=== PATIENT | male | born 1980 | race Caucasian/White ===

== ENCOUNTER 2020-09-22 17:04 | Outpatient (CLI) | payer OTHER, SELFPAY ==
--- NOTE | ~2020-09-22 | XR_ITS ---
EXAMINATION: HAND-HI ARTHRITIS 3+VIEWS DATE: 09/22/2020 17:21 INDICATION: Unspecified osteoarthritis with painful joints bilateral hands. TECHNIQUE: Posteroanterior, lateral, and oblique views of the left and of the right hands as well as a ballcatchers view of both hands were obtained. COMPARISON: None. FINDINGS: There is chronic-appearing osseous defect at the tuft of the right third distal phalanx with deformit y of the overlying nail and soft tissues suggesting sequela of old trauma. Bone alignment is normal. No acute fracture. Joint spaces are normal. No cortical erosions or osteophytosis. Soft tissues are u nremarkable. IMPRESSION: 1. No evident arthritis or acute osseous abnormality at the bilateral hands and wrists. Reviewed, dictated and finalized at location B. ER MINER BLASTING
== END 2020-09-22 17:05 | disposition home or self-care (01) ==
LOC: ANHIMG 17:06
PROVIDERS: PCP Family Medicine; Visit Provider Family Medicine
DX: M19.90 Unspecified osteoarthritis, unspecified site (principal); M79.89 Other specified soft tissue disorders
CPT/HCPCS: 73130

== ENCOUNTER 2021-04-12 15:57 | Outpatient (CLI) | payer OTHER, SELFPAY ==
--- NOTE | ~2021-04-12 | XR_ITS ---
EXAMINATION: XR chest 2V 04/12/2021 16:29 INDICATION: Chronic shortness of breath PROCEDURE: 2 view chest COMPARISON: No prior studies for comparison. FINDINGS: The lungs are clear. The cardiomediastinal silhouette is within normal limits. There are no pleural effusions. There is no pneumothorax suspected. IMPRESSION: 1: NO ACUTE CARDIOPULMONARY DISEASE. Reviewed, dictated and finalized at location A.
== END 2021-04-12 15:58 | disposition home or self-care (01) ==
LOC: ANHIMG 16:01
PROVIDERS: PCP Family Medicine; Visit Provider Physician Assistant
DX: R06.02 Shortness of breath (principal); R60.0 Localized edema
CPT/HCPCS: 71046

== ENCOUNTER 2023-09-24 13:07 | Emergency (ER) | payer OTHER, SELFPAY ==
--- NOTE | ~2023-09-24 | XR_ITS ---
EXAMINATION: XR chest 2V Exam Date/Time: 09/24/2023 13:55 PHOTOGRAPHER HISTORY: cough for 4 or 5 days Comparison: 04/12/2021. RESULT: Lines, tubes, and devices: None. Lungs and pleura: Subsegmental patchy left basilar opacities. Slightly low volumes with crowding. Cardiomediastinal silhouette: Stable. Other: No acute osseous or upper abdominal finding. IMPRESSION: Subsegmental left basilar atelectasis/consolidation. Reviewed, dictated and finalized at location K. OGRAPHER
--- NOTE | 2023-09-24 13:11 | ED.GENADULT ---
HPI - General Adult General Chief complaint: Upper Respiratory Infection Stated complaint: Cough,Runny Nose,Diarrhea Time Seen by Provider: 09/24/23 13:11 Source: patient Mode of arrival: ambulatory Limitations: no limitations History of Present Illness HPI narrative: 42-year-old male patient presents to [facility] with complaints of cold symptoms past 4-5 days. Patient does have a history of autoimmune disorder. Patient's states he has had runny nose, congestion a fever for about 2 days that has since resolved. Body aches, chills just overall not feeling would good and fatigue. Patient denies getting the flu shot this year. Patient states his most bothersome symptom is that a cough that started a couple of days ago and episodes of diarrhea. Related Data Allergies Allergy/AdvReac Type Severity Reaction Status Date / Time No Known Allergies Allergy Verified 09/24/23 13:17 Review of Systems Review of Systems: CONSTITUTIONAL: Positive fever, body aches and chills, denies sweats. EYES: Denies visual changes, redness, or discharge. ENT: Denies rhinorrhea, positive congestion, denies sore throat, or otalgia. CARDIOVASCULAR: Denies chest pain, palpitations, or edema. RESPIRATORY: positive cough with intermittent dyspnea. GASTROINTESTINAL: Denies abdominal pain, nausea, vomiting, positive diarrhea. GENITOURINARY: Denies dysuria or hematuria. SKIN: Denies rash or itching. MUSCULOSKELETAL: Denies back pain, joint pain, or myalgia. NEUROLOGIC: Denies headache, numbness, or weakness. PSYCHIATRIC: Denies anxiety or depression. [facility] Past Medical History Medical History ANCA-positive vasculitis Anxiety Chronic fatigue Diffuse pulmonary alveolar hemorrhage Diverticulitis of large intestine without perforation or abscess SIRI (generalized anxiety disorder) Hypersomnia Lipid screening PRIMO (obstructive sleep apnea) Rheumatoid arthritis Steroid long-term use Family History Family History Grandparent Family history of type 2 diabetes mellitus Social History Social History Social History: Smoking status: Never smoker (chewing tobacco) Tobacco type: smokeless tobacco Smokeless tobacco user: chewing tobacco Second hand tobacco smoke exposure: No Alcohol intake: current Alcohol use details: Rarely Substance use: never Substance use type: does not use Do You Feel Safe in your Home?: Yes Lack of Transportation: No Lack of Food: Never True Current Housing: I Have Housing Concerned About Future Housing: No Difficulty Paying Gas/Electric Bills: No Difficulty Paying for Meds: No Currently Unemployed: No Education: Trade/Vocational Certificate Difficulty w/ Childcare or Family Care: No Living arrangements: with family Occupation/Education: occupation 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 There is no relevant family history pertinent to the presenting complaint. Exam Narrative: GENERAL: Well-appearing, well-nourished, and in no acute distress. HEAD: Normocephalic, atraumatic. EYES: PERRLA and EOMI. ENT: Nares clear, no rhinorrhea or epistaxis. Mucous membranes moist. posterior pharynx no erythema, tonsillar enlargement, exudates or lesions present. Bilateral TMs are clear no erythema foreign bodies canal. NECK: Supple. No lymphadenopathy CHEST: Clear to auscultation. No respiratory distress. HEART: Regular rate and rhythm. No murmur heard. Normal peripheral pulses. ABDOMEN: Soft, nontender, nondistended, Hyperactive active bowel sound
[2023-09-24 13:15] VITALS: BP 141/84; PULSE 100; RESP 18; TEMP 37; O2SAT 97
== END 2023-09-24 14:25 | disposition home or self-care (01) ==
PROVIDERS: Emergency Provider Nurse Practitioner Family; PCP Family Medicine
DX: J10.1 Influenza due to other identified influenza virus with other respiratory manifestations (principal); J10.00 Influenza due to other identified influenza virus with unspecified type of pneumonia; M06.9 Rheumatoid arthritis, unspecified; F17.290 Nicotine dependence, other tobacco product, uncomplicated; Z20.822 Contact with and (suspected) exposure to COVID-19
CPT/HCPCS: 71046; 87081; 87426; 87804; 87880; 99213; G0463

== ENCOUNTER 2025-07-15 16:38 | Emergency (ER) | payer OTHER, SELFPAY ==
--- OUTSIDE RECORDS SUMMARY | 2025-07-15 16:41 | XMS_ITS | Encounter Summary ---
Author Organization [facility] Address [address] [facility] [place] [address] Care Team Providers Care Logging Assistant Name Role Phone Lenore Wolfe MD Primary Care Provider + Encounter Details Date Type Department Care Team (Late st Contact Info) Description 10/08/2020 Lab Requisition [facility] Care Pathology Lab [address] [place] [address] [place] [id number] [facility] [address] [place] [address] Acute kidney failure, unspecified Social History Tobacco Use Types Packs/Day Years Used Date Smoking Tobacco: Never Smokeless Tobacco: Never Alcohol Use Standard Drinks/Week Comments Yes 0 (1 standard drink = 0.6 oz pur e alcohol) AUDIT-C Answer Date Recorded Q1: How often do you have a drink containing alc ohol? Monthly or less 10/06/2020 Q2: How many drinks containi ng alcohol do you have on a typical day when you are drinking? 1 or 2 10/06/2020 Q3: How often do you have si x or more drinks on one occasion? Never 10/06/2020 Sex and Gender Information Value Date Recorded Sex Assigned at Not on file Legal Sex Male 12:57 AM CDT Gender Identity Male 11/28/2024 8:12 AM CDT Sexual Orientation Straight 11/28/2024 8: 12 AM CDT documented as of this encounter Functional Status * Is person deaf or have serious hearing difficulty? Answer Date of Assessment Author No 10/06/2020 3:45 AM CDT Polina Zuluaga i, RN * Is person blind or have serious difficulty seeing? Answer Date of Assessment Author No 10/06/2020 3:45 AM CDT Polina Zuluaga i, RN * Does person have serious difficulty walking/climbing stairs? Answer Date of Assessment Author No 10/06/2020 3:45 AM CDT Polina Zuluaga i, RN * Does person have difficulty dressing/bathing? Answer Date of Assessment Author No 10/06/2020 3:45 AM CDT Polina Zuluaga i, RN * Does person have difficulty doing errands alone? Answer Date of Assessment Author No 10/06/2020 3:45 AM CDT Polina Zuluaga i, RN documented as of this encounter Mental Status * Does person have difficulty concentrating/remembering/making decisions? Answer Entry Date Author No 10/06/2020 3:45 AM ROMEOT Polina Zuluaga i, RN documented in this encounter Plan of Treatment Upcoming Encounters Date Type Department Care Team (Late st Contact Info) Description 08/20/2025 10:40 AM CAMPAIGN CONSULTANT Office Visit [facility] [address] [address] Conchita Viveros, DENYS-MANAGER DISH [address] [address] 09/19/2025 8:30 AM CAMPAIGN CONSULTANT Office Visit [facility] - Nephrology [address] [place] [address], [place] [id number] Sam Carmona MD [address] [place] [address] [place] [address] 10/31/2025 9:00 AM CDT Appointment [facility] [address] [place] [address] documented as of this encounter Procedures Procedure Name Priority Date/Time Associated Diagnosis Comments ELECTRON MICROSCOPY (SLU) Routine 10/07/2020 1:00 PM CDT Acute kidney failure, unspecified documented in this encounter Results * ELECTRON MICROSCOPY (SLU) (10/07/2020 1:00 PM CDT) Case Report Gynecologic Cytology Report Case: [id number] Authorizing Provider: Jere Cooley MD Collected: 10/07/2020 01:00 PM Ordering Location: [facility] Care Pathology Lab Received: 10/08/2020 09:55 AM First Screen: Edward Liu Specimen: EM RENAL - U, Kidney, Left, There are five pieces, each approx. 5 mm long. 10/15/2020 3:23 PM CDT [facility] PATHOLOGY LAB Electron Microscopy Technical Summary # of Block(s) cut: 4 # of Glomeruli found: 3 # of Glomeruli photographed: 1 10/15/2020 3:23 PM CDT U PATHOLOGY LAB Embedded Images - EM 10/15/2020 3:23 PM CDT U PATHOLOGY LAB Pathology/Cytolo gy (Kidney, Left) 10/07/2020 1:00 PM CDT 10/08/2020 9:55 AM CDT us Jere Cooley MD LAB - PATHOLOGY/CYTOLOGY ORDERAB LES Final Result Performing Organization Address City/State/[facility] Co de Phone Number [facility] PATHOLOGY LAB [address] [phone] documented in this encounter Visit Diagnoses Diagnosis Acute kidney failure, unspecified documented in this encounter Care Teams Logging Assistant Relationship Specialty Start Date End Date Lenore Wolfe MD [address] [place] [address] PCP - General Family Medicine 02/14/22 documented as of this encounter
--- OUTSIDE RECORDS SUMMARY | 2025-07-15 16:41 | XMS_ITS | Encounter Summary ---
Author Organization [facility] Address [address] [facility] [place] [address] Care Team Providers Care Foil Wrapper Name Role Phone Lenore Wolfe MD Primary Care Provider + Encounter Details Date Type Department Care Team (Late st Contact Info) Description 05/26/2025 Results Follow-Up [facility] - Nephrology [address] [place] [address], [place] [phone] Sam Carmona MD [address] [place] [address] [place] [address] Social History Tobacco Use Types Packs/Day Years Used Date Smoking Tobacco: Never Smokeless Tobacco: Current Chew Comments:chew tobacco daily Alcohol Use Standard Drinks/Week Comments Yes 0 (1 standard drink = 0.6 oz pur e alcohol) occasionally AUDIT-C Answer Date Recorded Q1: How often [...] difficulty? Answer Date of Assessment Author No 10/12/2020 10:24 AM Yoli Fournier RN * Is person blind or have serious difficulty seeing? Answer Date of Assessment Author No 10/12/2020 10:24 AM Yoli Fournier RN * Does person have serious difficulty walking/climbing stairs? Answer Date of Assessment Author No 10/12/2020 10:24 AM Yoli Fournier RN * Does person have difficulty dressing/bathing? Answer Date of Assessment Author No 10/12/2020 10:24 AM Yoli Fournier RN * Does person have difficulty doing errands alone? Answer Date of Assessment Author No 10/12/2020 10:24 AM Yoli Fournier RN documented as of this encounter Mental Status * Does person have difficulty concentrating/remembering/making decisions? Answer Entry Date Author No 10/12/2020 10:24 AM Yoli Fournier RN documented in this encounter Plan of Treatment Upcoming Encounters Date Type Department Care Team (Late st Contact Info) Description 08/20/2025 10:40 AM CODER OPERATOR Office Visit [facility] Weight Management Services [address] [facility] [address] [place] [address] Conchita Viveros APRN-ELECTROMECHANICAL TECHNICIAN [address] [address] 09/19/2025 8:30 AM CODER OPERATOR Office Visit [facility] - Nephrology [address] [facility], [place] [phone] Sam Carmona MD [address] [place] [address] [place] [address] 10/31/2025 9:00 AM CDT Appointment [facility] [address] [place] [address] documented as of this encounter Goals Goal Patient Goal Type Associated Problems Recent Progress Patient-Stated? Author Medication Management General On track( 025 8:28 AM CDT) No Sera Aguilar RN Note: Expected end date: ongoing Interventions: Take all medications as prescribed Let your doctor know right away about any changes in your medications Safety General On track( 022 8:53 AM CODER OPERATOR) Sera Clarke, RN Note: Expected end date: ongoing Interventions: Your nurse will assess your risk for falls/injury each visit Be aware of medications that could predispose you to falling documented as of this encounter Visit Diagnoses Not on filedocumented in this encounter Care Teams Foil Wrapper Relationship Specialty Start Date End Date Lenore Wolfe MD [address] [place] [address] PCP - General Family Medicine 02/14/22 documented as of this encounter
--- OUTSIDE RECORDS SUMMARY | 2025-07-15 16:42 | XMS_ITS | Encounter Summary ---
Author Organization [facility] Address [address] [facility] [place] [address] Care Team Providers Care Sales Representative Graphic Art Name Role Phone Lenore Wolfe MD Primary Care Provider + Encounter Details Date Type Department Care Team (Late st Contact Info) Description 10/07/2020 Lab Requisition [facility] Care Pathology Lab [address] [place] [address] Gianni Reynolds MD [address] [facility] [address] [place] [address] Illness, unspecified Social History Tobacco Use Types Packs/Day [...] Assessment Author No 10/06/2020 3:45 AM CDT Polnia Zuluaga i, RN * Does person have [...] st Contact Info) Description 08/20/2025 10:40 AM AERIAL GUNNER Office Visit [facility] [address] [address] Conchita Viveros, [facility] [address] [address] 09/19/2025 8:30 AM AERIAL GUNNER Office Visit [facility] - Nephrology [address] [place] [address], [place] [phone] Sam Carmona MD [address] [place] [address] [place] [address] 10/31/2025 9:00 AM CDT Appointment [facility] [address] [place] [address] documented as of this encounter Procedures Procedure Name Priority Date/Time Associated Diagnosis Comments PATHOLOGY TISSUE Routine 10/07/2020 12:1 5 PM CDT Illness, unspecified documented in this encounter Results * PATHOLOGY TISSUE (10/07/2020 12:15 PM CDT) Case Report Surgical Pathology Report Case: [id number] Authorizing Provider: Collected: 10/07/2020 12:15 PM Ordering Location: [facility] Pathology Lab Received: 10/07/2020 02:57 PM Pathologist: Norberto Velazquez MD Specimen: Kidney Biopsy, left 11:41 AM CDT [facility] PATHOLOGY LAB Final Diagnosis Kidney, Left, Percutaneous Needle Biopsy: - 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 - Acute tubular injury. - Focal global and focal segmental glomerulosclerosis. - See note. Note: Of 50 glomeruli, 34 show extracapillary proliferation in the form of cellular crescents (19 glomeruli), fibrocellular crescents (12 glomeruli), and fibrous crescents (3 glomeruli). With regard to chronic changes, 5 of 50 glomeruli are globally sclerotic, there is approximately 10% tubule atrophy, and there is approximately 20% interstitial fibrosis. Light microscopy and immunofluorescence results were reported to Dr. Cooley on 10/08/20 at 3:45 p.m. Ultrastructural analysis is pending and will be reported in an addendum. 11:41 AM CDT [facility] PATHOLOGY LAB at 1558 CDT Microscopic Description and Comment 1 H&E, 1 Gaston silver, 1 PAS, 1 trichrome. Sections show needle cores of renal parenchyma with up to 50 glomeruli, 5 of which are globally sclerotic and 3 of which show segmental sclerosis. Of 50 glomeruli, 34 show extracapillary proliferation in the form of cellular crescents (19 glomeruli), fibrocellular crescents (12 glomeruli), and fibrous crescents (3 glomeruli); up to 9 glomeruli show segmental fibrinoid necrosis. The interstitium is expanded by fibrosis occupying approximately 20% of the cortex sampled. Within the interstitium is a mild mononuclear inflammatory infiltrate. Approximately 10% of tubules are atrophic. Nonatrophic tubules show focal cytoplasmic vacuolization, focal attenuation of the brush border, and an occasional epithelial mitotic figure. Arteries are unremarkable. (DSB) 11:41 AM CDT [facility] PATHOLOGY LAB Clinical History The patient is a 39-year-old man with hemoptysis, renal insufficiency (creatinine of 2.24), 3+ hematuria, and 1+ proteinuria. He underwent percutaneous needle biopsy of the left kidney. 11:41 AM [facility] PATHOLOGY LAB Gross Description Received in saline on an ice pack are four needle cores of padilla-pink tissue with diameters of 0.1 cm and lengths ranging from 1.2 cm to 1.5 cm. Glomeruli are identified with the dissecting scope. The specimen is submitted in its entirety for light microscopic, immunofluorescence, and electron microscopic analyses. 11:41 AM [facility] PATHOLOGY LAB Immunofluorescence 2 FS H&E, 1 IgG, 1 IgA, 1 IgM, 1 C1q, 1 C3, 1 albumin, 1 fibrinogen, 1 kappa, 1 lambda. H&E: Shows renal parenchyma with more than 10 glomeruli. IgG:Trace diffuse global linear glomerular basement membrane label. IgA: Trace focal segmental granular mesangial label. IgM: Trace diffuse segmental smudgy mesangial label. C1q: Trace diffuse segmental granular mesangial label. C3: 1+ diffuse segmental smudgy mesangial label. Albumin: 1+ diffuse global linear glomerular basement membrane label. Fibrinogen: 4+ diffuse segmental smudgy glomerular label. [place]: 3+ cast label. Lambda: 3+ cast label. 11:41 AM [facility] PATHOLOGY LAB Addendum 1 Electron Microscopy: [id number]. Wji-uniodgqzqi-tagi k, nikvtadmz-fydf-badw berkley sections of four blocks are reviewed; one is selected for ultrastructural analysis. Transmission electron microscopic analysis of a single glomerulus shows widespread effacement of visceral epithelial foot processes, segmental wrinkling of the basement membrane, swollen endothelial cells, and a moderate increase in mesangial matrix. EM Interpretation: - Nonspecific ultrastructural alterations. 11:41 AM [facility] PATHOLOGY LAB Addendum electronically signed by Norberto Velazquez MD on 10/16/2020 at 1141 CDT Disclaimer The performance characteristics of all immunohistochemical and indirect immunofluorescence stains (if any) cited in this report were determined by the Histopathology Laboratory of [facility]. Some of these tests were developed by our own laboratory and have not been cleared or approved by the US Food and Drug Administration. The FDA does not require this test to go through premarket FDA review. These tests are used for clinical purposes. They should not be regarded as investigational or for research. This laboratory is certified under the Clinical Laboratory Improvement Amendments (CLIA) as qualified to perform high complexity clinical laboratory testing. This case has been personally reviewed and interpreted by the attending (teaching) pathologist. The interpretation of this case is performed by [facility], [address] [place] [address]. 1 11:41 AM CDT [facility] PATHOLOGY LAB Embedded Images 11:41 AM CDT [facility] PATHOLOGY LAB Pathology/Cytolo gy KIDNEY BIOPSY SPECIMEN / Unknown 10/07/2020 12:15 PM CDT 10/07/2020 2:57 PM CDT us Gianni Reynolds MD LAB - PATHOLOGY/CYTOLOGY ORDERAB LES Edited Result - Final [facility] PATHOLOGY LAB [address] [place] [address], [facility] [phone] documented in this encounter Visit Diagnoses Diagnosis Illness, unspecified documented in this encounter Care Teams Sales Representative Graphic Art Relationship Specialty Start Date End Date Lenore Wolfe MD [address] [place] [address] PCP - General Family Medicine 02/14/22 documented as of this encounter
--- OUTSIDE RECORDS SUMMARY | 2025-07-15 16:42 | XMS_ITS | Clinical Summary ---
Author Organization [facility] Address [address] [place] [address] Phone Care Team Providers Care Hvac Service Technician Name Role Phone Unavailable Primary Care Provider Unavailabl e Allergies Active Allergy Reactions Criticality Noted Date Comments Amlodipine Swelling Medium 05/10/2021 Medications allopurinoL (ZYLOPRIM) 100 mg tablet Take 100 mg by mouth daily. Active Tavneos 10 mg Capsule Take 10 mg by mouth. Active chlorthalidone (HYGROTON) 25 mg tablet Take 25 mg by mouth daily. 5 Active losartan (COZAAR) 100 mg tablet Take 100 mg by mouth daily. 5 Active predniSONE (DELTASONE) 10 mg tablet TAKE 6 TABLETS BY MOUTH DAILY FOR 7 DAYS PLEASE TAKE AFTER FOOD 5 Active tirzepatide, weight loss, (Zepbound) 5 mg/0.5 mL Pen Injector Inject 5 mg by subcutaneous injection every 7 days. 5 Active erythromycin (ILOTYCIN) 5 mg/gram (0.5 %) ointmentIndicat ions:Chalazion of right lower eyelid Administer 0.25 Inches in right eye every 6 hours. 7 Gram 5 Active Active Problems No known active problems Encounters Date Type Department Care Team Description 06/24/2025 External Device Data ST[facility] ABSTRACTION Provider, Abstract 05/27/2025 External Device Data ST[facility] ABSTRACTION Provider, Abstract 05/21/2025 External Device Data ST[facility] ABSTRACTION Provider, Abstract 05/21/2025 External Device Data ST[facility] ABSTRACTION Provider, Abstract from Last 3 Months Social History Tobacco Use Types Packs/Day Years Used Date Smoking Tobacco: Never Assessed Sex and Gender Information Value Date Recorded Sex Assigned at Not on file Legal Sex Male 9:19 AM CDT Gender Identity Not on file Sexual Orientation Not on file Last Filed Vital Signs Vital Sign Reading Time Taken Comments Blood Pressure 132/80 01/19/2025 9:41 AM CDT Pulse 84 01/19/2025 9:41 AM CDT Temperature 37.2 C (98.9 F) 01/19/2025 9:41 AM CDT Respiratory Rate 16 01/19/2025 9:41 AM CDT Oxygen Saturation 99% 01/19/2025 9:41 AM CDT Inhaled Oxygen Concentration - - Weight 148.1 kg (326 lb 9.6 oz) 01/19/2025 9:41 AM CDT Height 185.4 cm (6' 1) 01/19/2025 9:41 AM CDT Body Mass Index 43.09 01/19/2025 9:41 AM CDT Plan of Treatment Health Maintenance Due Date Last Done Comments Pre-Diabetes and Diabetes Screening 1980 DTAP/TDAP/TD VACCINES (1 - Tdap) 12/06/1999 HEPATITIS B VACCINES (1 of 3 - 19+ 3-dose series) 12/06/1999 INFLUENZA VACCINE (#1) 2025 COVID-19 Vaccine (3 - 2024- season) 2025, 08/14/2020 HPV VACCINES (No Doses Required) Completed Insurance [employer] O OPEN ACCESS
--- OUTSIDE RECORDS SUMMARY | 2025-07-15 16:42 | XMS_ITS | Data Portability ---
Author Organization [facility] [place] (57) Address [address] [facility] [address] [place] [address] Care Team Providers Care Credit Assessment Analyst Name Role Phone LENNY HWANG Referring Provider [phone] Assessment No assessment recorded. Plan of Treatment Reminders Order Date Submit Date Provider Last Modified By Organization Details Last Modified Time Details Appointments None record ed. Lab None record ed. Referral None record ed. Procedures None record ed. Surgeries None record ed. Imaging None record ed. Medication Orders None record ed. Patient TargetsNo targets recorded. Patient InstructionsNo instructions recorded. Reason for Referral None Reported. Procedures Surgical History Date Name Laterality Status Provider Name and Address Organization Details Recorded Time 12/28/2020 Sleep Study completed Mehdi Vinson [facility] [place] 12/29/2020 15:42:16 Imaging Results None recorded. Procedure Notes None recorded. Medical Equipment None Reported. Medications Name Sig Start Date Stop Date Status Note LastModified by Organization Details LastModified Time cyclobenzapri ne 10 mg tablet active Not Available Not Available Not Available prednisone 10 mg tablet active Not Available Not Available No t Available prednisone 20 mg tablet TAKE 3 TABLETS BY MOUTH DAILY WITH BREAKFAST active Not Available Not Available No t Available prednisone 5 mg tablet active Not Available Not Available No t Available amlodipine 5 mg tablet TAKE 1 TABLET BY MOUTH EVERY DAY active Not Available Not Available No t Available ciprofloxacin 500 mg tablet TK 1 T PO Q 12 H FOR 10 DAYS active Not Available Not Available No t Available famotidine 20 mg tablet TAKE 1 TABLET BY MOUTH EVERY DAY active Not Available Not Available No t Available lorazepam 0.5 mg tablet TAKE 1 TABLET BY MOUTH TWICE DAILY NEEDED FOR ANXIETY active Not Available Not Available No t Available tamsulosin 0.4 mg capsule active Not Available Not Available Not Available prednisone 2.5 mg tablet TAKE 1 TABLET BY MOUTH EVERY DAY active Not Available Not Available No t Available Vitals Date Recorded Body height Body mass index (BMI) Body weight Provider Name and Address Organization Details Last Updated DateTime 12/28/2020 185.42 cm 38.9 kg/m2 572635.75 g Den [place] [facility] [place] 12/28/2020 16:35:10 Social History Question Answer Notes LastModified by Organizat ion Details LastModified Time What Is Your Level Of Caffeine Consumption? Occasional [email or web address] Information not available 12/03/2020 Describe Your Sleep Problem Cant Stay Asleep, Witnessed Apnea (25 Seconds). Gasping For Air All Night, Snores Loudly [email or web address] Information not available 12/03/2020 Have You Had A Sleep Study Before? No [email or web address] Information not available 12/03/2020 Do You Snore? Yes [email or web address] Information not available 12/03/2020 Has Anyone Ever Told You That You Stop Breathing In Your Sleep Or Do You Waking Up Gasping/choki ng? Yes Yes To Both Information not available 12/03/2020 Any Unusual Activity At Night? No Information not available 12/03/2020 Do Your Legs Bother You At Night? Yes Joint Pain [email or web address] Information not available 12/03/2020 Sitting Quietly Do You Doze Off Unintentional ly? Yes Information not available 12/03/2020 Do You Fall Asleep While Driving? No [email or web address] Information not available 12/03/2020 Do You Require Special Assistance? No [email or web address] Information not available 12/03/2020 Are There Any Other Medical Concerns That We Should Be Aware Of? Yes Autoimmune Disease [email or web address] Information not available 12/03/2020 Bedtime? 9 [email or web address] Information no t available 12/03/2020 Waketime? 330 [email or web address] Information no t available 12/03/2020 Are You On Oxygen? If So, # LPM O2 No [email or web address] Information not available 12/03/2020 Does Anyone Sleep In The Same Room With You? Yes [email or web address] Information not available 12/03/2020 Sex: Unknown Functional Status None recorded. Mental Status None recorded. Family History Nothing Reported. Medical History No medical history recorded. Past Encounters Encounter ID Performer Location Encounter Start Date Encounter Closed Date Diagnosis/Indication Diagnosis SNOMED-CT Code Diagnosis ICD10 Code Diagnosis IMO Codes Diagnosis Note [id number] [facility], [facility] [phone]) [phone] [facility] [address] [place] [address] 12/28/2020 16:25:23 12/29/2020 15:04:37 Obstructive sleep apnea of adult 5495102603 103 G47.33 Health Concerns Section Related Observation LastModified by Organization Detai ls LastModified Time None Recorded Concern Status LastModified by Organization Details LastModified Time None Recorded Advance Directives Directive None Recorded Payers Insurance Date Sequence Insurance Name Policy Number Policy Agarwal Covered Member ID Agarwal Member ID Guarantor Name 01/18/2021 1 [facility] Jeff Domingo [id number] Jeff Domingo 01/02/2021 1 [facility] [id number] Jeff Domingo Notes Date Note Type Note Provider Name and Address Organization Details Recorded Time text/html HST SetupReported by PatientEquipment InstructionsFor hst set up, patient reportsdemonstrated to patient how to set up home sleep test device. the patient was able to return demonstration with out difficulty.andthe patient is returning the device the following morning.. Jeff Lemon MD [facility] [id number] [facility] [address], [place], [address], [place] [facility] [place] 12/30/2020 19:11:48
--- OUTSIDE RECORDS SUMMARY | 2025-07-15 16:42 | XMS_ITS | Clinical Summary ---
Author Organization [facility] Address [facility] [place] [address] Care Team Providers Care Unit Receptionist Name Role Phone Lenore Wolfe MD Primary Care Provider [phone] Allergies No known active allergies Medications predniSONE 10 mg tablet Take 10 mg by mouth daily. 09/22/2020 Active Immunizations Immunization Administration Dates Next Due MODERNA COVID-19 (12+) MRNA, LNP-S, PF, 100 MCG/ 0.5 ML DOSE 09/18/2020,08/14/2020 Social History Tobacco Use Types Packs/Day Years Used Date Smoking Tobacco: Never Smokeless Tobacco: Current Chew Alcohol Use Standard Drinks/Week Comments Yes 0 (1 standard drink = 0.6 oz pur e alcohol) rarely Sex and Gender Information Value Date Recorded Sex Assigned at Not on file Legal Sex Male 6:25 PM CDT Gender Identity Not on file Sexual Orientation Not on file Last Filed Vital Signs Vital Sign Reading Time Taken Comments Blood Pressure 138/90 10/06/2020 1:00 AM CDT Pulse 95 10/06/2020 1:00 AM CDT Temperature 37.7 C (99.8 F) 10/05/2020 8:20 PM CDT Respiratory Rate 24 10/06/2020 1:00 AM CDT Oxygen Saturation 91% 10/06/2020 1:00 AM CDT Inhaled Oxygen Concentration - - Weight 129.3 kg (285 lb) 10/05/2020 8:20 PM CDT Height 185.4 cm (6' 1) 10/05/2020 8:20 PM CDT Body Mass Index 37.6 10/05/2020 8:20 PM CDT Plan of Treatment Health Maintenance Due Date Last Done Comments Annual Physical 12/06/1983 Hepatitis C 1998 DTaP, Tdap and Td Vaccines ( 1 - Tdap) 12/06/1999 Hepatitis B Vaccines (1 of 3 - 19+ 3-dose series) 12/06/1999 HPV Vaccines (1 - 3-dose SCD M series) 12/06/2007 COVID-19 Vaccine (3 - 2024-2 6 season) 2025 09/18/2020, 08/14/2020 Influenza Adult (#1) 2025 Hepatitis A Vaccines Aged Out No long er eligible based on patient's age to complete this topic Meningococcal B Vaccine Aged Out No l onger eligible based on patient's age to complete this topic Meningococcal Vaccine Aged Out No dannielle lazaro eligible based on patient's age to complete this topic Pneumococcal Vaccine: Pediatrics (0 to 5 Years) and At-Risk Patients (6 to 49 Years) Aged Out No longer eligible b ased on patient's age to complete this topic RSV Immunizations Under 20 Months Aged Out No longer eligible b ased on patient's age to complete this topic Insurance ENDY CALIX Care Teams Unit Receptionist Relationship Specialty Start Date End Date Lenore Wolfe MD [address] [facility] [address] [place] [address] PCP - General FAMILY PRACTICE 07/22/20
[2025-07-15 16:43] VITALS: BP 119/80; PULSE 82; RESP 18; TEMP 36.1; O2SAT 99
--- OUTSIDE RECORDS SUMMARY | 2025-07-15 16:44 | XMS_ITS | Clinical Summary ---
Author Organization [facility] [employer] Address [address] [place] [address] Care Team Providers Care Quality Manager Name Role Phone Lenore Wolfe MD Primary Care Provider + Source Comments [facility],non-owned Affiliates and Associated Physician Practices is amultiple site organization consisting of ambulatory clinics and hospital sitesin [place], [place], [place] and [place]. This disclosure is being madepursuant to the Care Everywhere program and may not contain all information available regarding this patient. Last updated 18.[facility] [employer] Allergies Active Allergy Reactions Criticality Noted Date Comments Amlodipine Base Swelling Medium 05/10/2021 Medications * Be aware that medications may not be up to date on this document. Alwaysverify current medications with the patient. losartan (Cozaar) 100 MG tablet Take 1 (one) tablet by mouth once daily 90 tablet 3 5 Active Avacopan (Tavneos) 10 MG CAPS Take 10 mg by mouth Active tirzepatide (Zepbound) 7.5 MG/0.5ML injectionIndic ations:BMI 40.0-44.9, adult (HCC) Inject 7.5 (seven and one-half) mg subcutaneously every 7 days (once a week) 2 mL 2 5 Active tirzepatide (Zepbound) 10 MG/0.5ML injectionIndic ations:BMI 40.0-44.9, adult (HCC) Inject 10 (ten) mg subcutaneously every 7 days (once a week) 2 mL 1 Active Active Problems Problem Noted Date Diagnosed Date Morbid obesity 10/11/2024 Generalized edema 04/19/2021 PRIMO on CPAP 02/08/2021 Nocturia 02/08/2021 Essential hypertension, benign 11/23/2020 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 Acute respiratory failure with hypoxia 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 Encounters Date Type Department Care Team Description 06/03/2025 11:55 AM RADIO REPAIRMAN Office Visit [facility] [address], [address] [place] [address] Conchita Viveros, SOFTWARE TECHNICIAN-CLINIC PHYSICIAN BMI 40.0-44.9, adult (HCC) (Primary Dx) 05/26/2025 Results Follow-Up [facility] - Nephrology [address] [place] [phone] Sam Carmona MD 05/22/2025 8:30 AM CDT Office Visit [facility] - Nephrology [address] [place] [phone] Sam Carmona MD ANCA-positive vasculitis (HCC) (Primary Dx) 05/22/2025 6:37 AM CDT - 05/22/2025 11:59 PM CDT Hospital Encounter [facility] [address] [place] [address] Sam Carmona MD Discharge Disposition: Home or Self Care 05/22/2025 Travel 05/02/2025 8:47 AM CDT - 05/02/2025 11:59 PM CDT Hospital Encounter [facility] [address] [place] [address] Sam Carmona MD Nephrology Discharge Disposition: Home or Self Care 04/29/2025 Orders Only [facility] - Nephrology [address] [place] [phone] Sam Carmona MD 04/15/2025 11:55 AM CDT Office Visit [facility] [address], [address] [place] [address] Conchita Viveros APRN-CNP BMI 40.0-44.9, adult (HCC) (Primary Dx) from Last 3 Months Family History Medical History Relation Name Comments Renal Disease Sister Benign Relation Name Status Comments Sister Social History Tobacco Use Types Packs/Day Years Used Date Smoking Tobacco: Never Smokeless Tobacco: Current Chew Tobacco Cessation:Ready to Q uit: Not Asked; Counseling Given: Not Answered Comments:chew tobacco daily Alcohol Use Standard Drinks/Week [...] Orientation Straight 11/28/2024 8: 12 AM CDT Last Filed Vital Signs Vital Sign Reading Time Taken Comments Blood Pressure 126/86 06/03/2025 11:58 AM RADIO REPAIRMAN Pulse 74 06/03/2025 11:58 AM RADIO REPAIRMAN Temperature 36.3 C (97.3 F) 06/03/2025 11:58 AM RADIO REPAIRMAN Respiratory Rate 18 05/02/2025 8:52 AM CDT Oxygen Saturation 97% 06/03/2025 11: 58 AM RADIO REPAIRMAN Inhaled Oxygen Concentration 100% 12:30 PM CDT Weight 136.8 kg (301 lb 9.6 oz) 025 11:58 AM RADIO REPAIRMAN Height 182.9 cm (6') 06/03/2025 11:58 AM RADIO REPAIRMAN Body Mass Index 40.9 06/03/2025 11:58 AM RADIO REPAIRMAN Plan of Treatment Upcoming Encounters Date Type Department Care Team (Late st Contact Info) Description 08/20/2025 10:40 AM RADIO REPAIRMAN Office Visit [facility] [address], [address] [place] [address] Conchita Viveros APRN-CNP [address] [address] 09/19/2025 8:30 AM RADIO REPAIRMAN Office Visit [facility] - Nephrology [address] [facility] [place] [phone] Sam Carmona MD [address] [place] [address] [address] [place] [address] 10/31/2025 9:00 AM CDT Appointment [facility] [address] [place] [address] Health Maintenance Due Date Last Done Comments MENINGOCOCCAL GROUPS A/C/Y/W VACCINE (1 - Risk 2-dose series) 1982 MENINGOCOCCAL (Group B) VACCINE SHARED DECISION-MAKING (1 of 4 - Increased Risk) 1990 HIV SCREENING 12/06/1995 DTAP/TDAP/TD VACCINES (1 - Tdap) 12/06/1999 HEPATITIS B VACCINE (1 of 3 - 19+ 3-dose series) 12/06/1999 HPV VACCINE (1 - 3-dose SCDM series) 12/06/2007 DEPRESSION SCREENING 07/24/2024 COVID-19 VACCINE ( - 2024- season) 2025 09/18/2020, 08/14/2020 INFLUENZA VACCINE (#1) 2025 SCREENING FOR DIABETES 05/22/2028 , 02/06/2025, 02/06/2025, Additional history exists LIPID TESTING 02/06/2030 02/06/2025, 11/06/2023 ZOSTER VACCINE (1 of 2) 2030 HEPATITIS C SCREENING Completed 03/21/2024, 021 HIB VACCINE Aged Out No longer eligi ble based on patient's age to complete this topic PNEUMOCOCCAL VACCINE Aged Out No long er eligible based on patient's age to complete this topic Goals Goal Patient Goal Type Associated Problems Recent Progress Patient-Stated? Author Medication Management General On track( 025 8:28 AM CDT) No Sera Aguilar, RN Note: Expected end date: ongoing Interventions: Take all medications as prescribed Let your doctor know right away about any changes in your medications Safety General On track( 022 8:53 AM RADIO REPAIRMAN) Sera Clarke RN Note: Expected end date: ongoing Interventions: Your nurse will assess your risk for falls/injury each visit Be aware of medications that could predispose you to falling Procedures Procedure Name Priority Date/Time Associated Diagnosis Comments MICROALB/CREAT RATIO URINE RANDOM PANEL Routine 05/22/2025 7:10 AM CDT ANCA-associated vasculitis (HCC) Stage 3a chronic kidney disease (HCC) Morbid obesity (HCC) Prediabetes Essential hypertension, benign URINALYSIS REFLEX TO MICROSCOPIC NO CULTURE Routine 05/22/2025 7:10 AM CDT ANCA-associated vasculitis (HCC) Stage 3a chronic kidney disease (HCC) Morbid obesity (HCC) Prediabetes Essential hypertension, benign TSH Routine 05/22/2025 6:53 AM CDT ANCA-associated vasculitis (HCC) Stage 3a chronic kidney disease (HCC) Morbid obesity (HCC) Prediabetes Essential hypertension, benign MPO/OH 3 AUTOANTIBODIES PANEL Routine 05/22/2025 6:53 AM CDT ANCA-associated vasculitis (HCC) Stage 3a chronic kidney disease (HCC) Morbid obesity (HCC) Prediabetes Essential hypertension, benign VITAMIN B12 Routine 05/22/2025 6:53 AM CDT ANCA-associated vasculitis (HCC) Stage 3a chronic kidney disease (HCC) Morbid obesity (HCC) Prediabetes Essential hypertension, benign FOLATE Routine 05/22/2025 6:53 AM CDT ANCA-associated vasculitis (HCC) Stage 3a chronic kidney disease (HCC) Morbid obesity (HCC) Prediabetes Essential hypertension, benign COMPREHENSIVE METABOLIC PANEL Routine 05/22/2025 6:53 AM CDT ANCA-associated vasculitis (HCC) Stage 3a chronic kidney disease (HCC) Morbid obesity (HCC) Prediabetes Essential hypertension, benign CBC W AUTO DIFFERENTIAL Routine 05/22/20 6:53 AM CDT ANCA-associated vasculitis (HCC) Stage 3a chronic kidney disease (HCC) Morbid obesity (HCC) Prediabetes Essential hypertension, benign LIPID PROFILE Routine 02/06/2025 7:45 AM CDT ANCA-positive vasculitis (HCC) Stage 3a chronic kidney disease (HCC) Morbid obesity (HCC) Hypercholesteremia Essential hypertension, benign Prediabetes HEPATITIS C ANTIBODY Routine 03/21/2024 7:28 AM CDT ANCA-positive vasculitis from Last 3 Months or Most Recently Relevant to Health Maintenance Results * MICROALB/CREAT RATIO URINE RANDOM PANEL (05/22/2025 7:10 AM CDT) Albumin Random Urine 29.1 Not Established ug/mL 05/22/2025 8:13 AM CDT [facility] Creatinine Urine 178.35 Not Established mg/dL 05/22/2025 8:13 AM CDT [facility] Urine Albumin/Creati nine Ratio 16 <30 mg/g 05/22/2025 8:13 AM CDT [facility] Urine URINE SPECIMEN OBTAINED BY CLEAN CATCH PROCEDURE / Unknown Collection / Unknown 05/22/2025 7:10 AM CDT 05/22/2025 7:40 AM CDT Sam Carmona MD LAB - URINE CHEMISTRY ORDERABLES Final Result Performing Organization Address City/State/[facility] Co de Phone Number [address] [address], [facility] [phone] * (ABNORMAL) URINALYSIS REFLEX TO MICROSCOPIC NO CULTURE (05/22/2025 7:10 AM CDT) Color UA Yellow Yellow, Straw 05/22/2025 7:49 AM CDT [facility] Clarity UA Clear Clear 05/22/2025 7:49 AM CDT [facility] Glucose UA Normal Normal 05/22/2025 7:49 AM CDT [facility] Bilirubin UA Negative Negative 05/22/2025 7:49 AM [facility] Ketone UA Negative Negative 05/22/2025 7:49 AM [facility] Specific [place] UA 1.019 1.005 - 1.030 05/22/2025 7:49 AM [facility] Blood UA Trace(A) Negative 05/22/2025 7:49 AM [facility] pH UA 5.5 5.0 - 8.0 05/22/2025 7:49 AM [facility] Protein UA Negative Negative 05/22/2025 7:49 AM [facility] Urobilinogen UA Normal Normal mg/dL 025 7:49 AM [facility] Nitrite UA Negative Negative 05/22/2025 7:49 AM [facility] Leukocyte Esterase UA Negative Negative 05/22/2025 7:49 AM [facility] RBC UA 0-2 0 - 5 # /hpf 05/22/2025 7:49 AM [facility] WBC UA 0-5 0 - 5 # /hpf 05/22/2025 7:49 AM [facility] Bacteria UA None Seen None Seen 05/22/2025 7:49 AM [facility] Squamous Epithelial Cells None Seen 0 - 5 /hpf 05/22/2025 7:49 AM [facility] Mucus UA 1+ /LPF 05/22/2025 7:49 AM [facility] Urine URINE SPECIMEN OBTAINED BY CLEAN CATCH PROCEDURE / Unknown Collection / Unknown 05/22/2025 7:10 AM CDT 05/22/2025 7:40 AM T us Sam Carmona MD LAB - URINALYSIS ORDERABLES Keesha lana Result [address] [address], [facility] [phone] * MPO/OH 3 AUTOANTIBODIES PANEL (05/22/2025 6:53 AM CDT) Serine Proteinase 3 IgG 8 0 - 19 AU/mL 05/24/2025 2:26 PM CDT [facility] ([facility]) Comment: INTERPRETIVE INFORMATION: Serine Proteinase 3, IgG 19 AU/mL or Less ........ Negative 20-25 AU/mL ............. Equivocal 26 AU/mL or Greater ..... Positive Approximately 85% of patients with a C-ANCA pattern by IFA have antibodies specific for PR3. Performed By: [facility] [address] [place] [address] Rescue Instructor: Xavier Jenkins MD, PhD CLIA Number: [id number] Myeloperoxidase Antibody 0 0 - 19 AU/mL 05/24/2025 2:26 PM CDT [facility] ([facility]) Comment: INTERPRETIVE INFORMATION: Myeloperoxidase Abs, IgG 19 AU/mL or Less ......... Negative 20-25 AU/mL .............. Equivocal 26 AU/mL or Greater ...... Positive Approximately 90% of patients with a P-ANCA pattern by IFA have antibodies specific for MPO. Blood BLOOD SPECIMEN / Unknown Lab Venipuncture / Unknown 05/22/2025 6:53 AM CDT 05/22/2025 7:39 AM CDT Sam Carmona MD LAB - CHEMISTRY ORDERABLES Final Result [facility]) [address] [place] [address] * (ABNORMAL) CBC WITH DIFFERENTIAL (05/22/2025 6:53 AM CDT) [facility] WBC 7.0 4.0 - 10.7 x10E9/L 05/22/2025 8:17 AM CDT [facility] RBC Count 4.82 4.30 - 5.80 x10E12/L 05/22/2025 8:17 AM CDT [facility] Hemoglobin 14.3 13.3 - 17.5 g/dL 05/22/2025 8:17 AM CDT [facility] Hematocrit 43.9 38.7 - 51.1 % 05/22/2025 8:17 AM CDT [facility] MCV 91.1 80.0 - 98.0 fL 05/22/2025 8:17 AM [facility] MCH 29.7 26.7 - 33.6 pg 05/22/2025 8:17 AM [facility] MCHC 32.6 31.7 - 36.3 g/dL 05/22/2025 8:17 AM [facility] RDW-CV 13.0 11.3 - 14.8 % 05/22/2025 8:17 AM [facility] Platelet Count 222 150 - 420 x10E9/L 05/22/2025 8:17 AM [facility] MPV 11.8(H) 7.8 - 11.4 fL 05/22/2025 8:17 AM [facility] Neutrophil % 66.8 41.0 - 74.0 % 05/22/2025 8:17 AM [facility] Lymphocyte % 19.5 17.0 - 47.0 % 05/22/2025 8:17 AM [facility] Monocyte % 9.2 3.0 - 11.0 % 05/22/2025 8:17 AM [facility] Eosinophil % 3.3 0.0 - 7.0 % 05/22/2025 8:17 AM [facility] Basophil % 0.9 0.0 - 1.6 % 05/22/2025 8:17 AM [facility] Immature Granulocytes % 0.3 0.0 - 1.0 % 05/22/2025 8:17 AM [facility] Neutrophil Absolute 4.71 1.60 - 7.50 x10E9/L 05/22/2025 8:17 AM [facility] Lymphocyte Absolute 1.37 1.00 - 4.40 x10E9/L 05/22/2025 8:17 AM [facility] Monocyte Absolute 0.65 0.15 - 1.00 x10E9/L 05/22/2025 8:17 AM [facility] Eosinophil Absolute 0.23 0.00 - 0.60 x10E9/L 05/22/2025 8:17 AM [facility] Basophil Absolute 0.06 0.00 - 0.13 x10E9/L 05/22/2025 8:17 AM [facility] Blood BLOOD SPECIMEN / Unknown Lab Venipuncture / Unknown 05/22/2025 6:53 AM CDT 05/22/2025 7:43 AM CDT us Sam Carmona MD LAB - HEMATOLOGY ORDERABLES Keesha lana Result [facility] [address] [place] [phone], [facility] [phone] * (ABNORMAL) COMPREHENSIVE METABOLIC PANEL (05/22/2025 6:53 AM CDT) BUN 32(H) 7 - 26 mg/dL 05/22/2025 8:26 AM [facility] Creatinine 1.88(H) 0.71 - 1.16 mg/dL 05/22/2025 8:26 AM [facility] Sodium 140 136 - 145 mmol/L 05/22/2025 8:26 AM [facility] Potassium 3.8 3.5 - 4.5 mmol/L 05/22/2025 8:26 AM [facility] Chloride 104 98 - 107 mmol/L 05/22/2025 8:26 AM [facility] CO2 28 22 - 29 mmol/L 05/22/2025 8:26 AM [facility] Glucose 88 70 - 99 mg/dL 05/22/2025 8:26 AM [facility] Calcium 9.5 8.4 - 10.2 mg/dL 05/22/2025 8:26 AM [facility] Protein Total 6.7 6.0 - 8.3 g/dL 05/22/2025 8:26 AM [facility] Albumin 4.1 3.4 - 5.0 g/dL 05/22/2025 8:26 AM [facility] Bilirubin Total 0.4 0.2 - 1.2 mg/dL 05/22/2025 8:26 AM [facility] Alkaline Phosphatase 80 40 - 150 U/L 05/22/2025 8:26 AM [facility] ALT 15 5 - 55 U/L 05/22/2025 8:26 AM [facility] AST 15 5 - 34 U/L 05/22/2025 8:26 AM [facility] Anion Gap 8 6 - 16 05/22/2025 8:26 AM [facility] BUN/Creatinine Ratio 17 7 - 23 05/22/2025 8:26 AM [facility] Osmolality Calculated 296(H) 275 - 295 mOsm/kg 05/22/2025 8:26 AM [facility] Albumin/Globulin Ratio 1.6 1.1 - 2.3 05/22/2025 8:26 AM [facility] eGFR by CKD-EPI 45(L) >=90 mL/min/1.7 3 m2 05/22/2025 8:26 AM [facility] Comment:Estimated Glomerular Filtration Rate (eGFR) calculated using the CKD-EPI Creatinine Equation (2020), per the National Kidney Foundation and [place] [employer] of Nephrology recommendations. Blood BLOOD SPECIMEN / Unknown Lab Venipuncture / Unknown 05/22/2025 6:53 AM CDT 05/22/2025 7:43 AM CDT Sam Carmona MD LAB - CHEMISTRY ORDERABLES Final Result [address] [address], [facility] [phone] * FOLATE (05/22/2025 6:53 AM CDT) Folate 7.9 7.0 - 31.4 ng/mL 05/22/2025 6:10 PM T [facility] Blood BLOOD SPECIMEN / Unknown Lab Venipuncture / Unknown 05/22/2025 6:53 AM CDT 05/22/2025 7:43 AM CDT Sam Carmona MD LAB - CHEMISTRY ORDERABLES Final Result [address] [address], [place] [phone] * VITAMIN B12 (05/22/2025 6:53 AM CDT) Pathologist [facility] Vitamin B12 392 213 - 816 pg/mL 05/22/2025 8:50 AM CDT [facility] Blood BLOOD SPECIMEN / Unknown Lab Venipuncture / Unknown 05/22/2025 6:53 AM CDT 05/22/2025 7:43 AM CDT us Sam Carmona MD LAB - CHEMISTRY ORDERABLES Final Result Performing Organization Address City/[facility]/ZIP Co de Phone Number [address] [address], [place] [phone] * TSH (05/22/2025 6:53 AM CDT) Pathologist [facility] TSH 1.228 0.350 - 4.940 uIU/mL 05/22/2025 8:50 AM CDT [facility] Blood BLOOD SPECIMEN / Unknown Lab Venipuncture / Unknown 05/22/2025 6:53 AM CDT 05/22/2025 7:43 AM CDT Sam Carmona MD LAB - CHEMISTRY ORDERABLES Final Result Performing Organization Address City/[facility] Co de Phone Number [address] [address], [place] [phone] * (ABNORMAL) LIPID PROFILE (02/06/2025 7:45 AM CDT) [facility] Cholesterol Total 211(H) <200 mg/dL 02/06/2025 8:56 AM CDT [facility] HDL 38(L) >40 mg/dL 02/06/2025 8:56 AM CDT [facility] Comment: ATP III Classification of HDL Cholesterol: <40 mg/dL: Considered a major risk factor. >60 mg/dL: Considered a negative risk factor. LDL Calculated 150(H) <100 mg/dL 02/06/2025 8:56 AM CDT [facility] Comment: ATP III Classification of LDL Cholesterol: <100 mg/dL: Optimal 100 - 129 mg/dL: Near Optimal/Above Optimal 130 - 159 mg/dL: Borderline High 160 - 189 mg/dL: High >190 mg/dL: Very High LDL is calculated using the Friedewald equation. Triglycerides 117 <150 mg/dL 02/06/2025 8:56 AM CDT [facility] Comment: ATP III Classification of Triglycerides: <150 mg/dL: Normal 150 - 199 mg/dL: Borderline High 200 - 400 mg/dL: High >500 mg/dL: Very High Blood BLOOD SPECIMEN / Unknown Lab Venipuncture / Unknown 02/06/2025 7:45 AM CDT 02/06/2025 8:21 AM CDT Sam Carmona MD LAB - CHEMISTRY ORDERABLES Final Result [facility] [address] [place] [address], [place] [phone] * HEPATITIS C ANTIBODY (03/21/2024 7:28 AM CDT) Hepatitis C Antibody Non-react jessica Non-reac tive 03/21/2024 9:27 AM CDT [facility] Comment:Hepatitis C Antibody screen indicates no serologic evidence of past or current infection with Hepatitis C Virus. Patients with unexplained liver disease who are immunocompromised or suspected of having acute Hepatitis C infection may benefit from Nucleic Acid Test (PACO) for Hepatitis C Viral RNA to confirm Hepatitis C status. Blood BLOOD SPECIMEN / Unknown Lab Venipuncture / Unknown 03/21/2024 7:28 AM CDT 03/21/2024 8:40 AM CDT Sam Carmona MD LAB - CHEMISTRY ORDERABLES Final Result [facility] [address] [place] [address], [place] [phone] from Last 3 Months or Most Recently Relevant to Health Maintenance Insurance [employer] [facility] Address: [facility] [id number] [place] [address] [employer] Advance Directives * Full Code (Latest Code Status on File) Date Activated Date Inactivated Comments 10/08/2020 11:07 PM 10/12/2020 12:44 PM * Full Code Date Activated Date Inactivated Comments 10/06/2020 5:59 AM 10/08/2020 10:04 PM Care Teams Quality Manager Relationship Specialty Start Date End Date Lenore Wolfe MD [address] [facility] [address] [place] [address] PCP - General Family Medicine 02/14/22
--- NOTE | 2025-07-15 16:49 | ED.GENADULT ---
HPI - General Adult General Chief complaint: Abdominal Pain Stated complaint: Abdominal Pain Source: patient and family Mode of arrival: ambulatory Limitations: no limitations History of Present Illness HPI narrative: left abd pain that began at 7 pm. as long as he isnt moving he has no pain. no fever chills. Patient states he feels a sharp burning sensation constantly in the left lower quadrant that has worsened through the day. he denies vomiting but reports no appetite. he states no fever. denies any other distress. patient denies any chest pain, shortness a breath, headache or dizziness Onset (ago): day(s) (1) Location: abdomen Radiation: non-radiation Severity: moderate Severity scale (1-10): 6 Quality: burning and sharp Pain Consistency: constant Relieving factors: none Exacerbating factors: none Associated symptoms: denies other symptoms Treatments prior to arrival: none Related Data Allergies Allergy/AdvReac Type Severity Reaction Status Date / Time No Known Allergies Allergy Verified 07/15/25 16:40 Review of Systems Review of Systems: All systems reviewed & are unremarkable except as noted in HPI and below PMFSH Past Medical History Medical History Lipid screening Hypersomnia Diverticulitis of large intestine without perforation or abscess Chronic fatigue PRIMO (obstructive sleep apnea) Steroid long-term use Anxiety Diffuse pulmonary alveolar hemorrhage Rheumatoid arthritis SIRI (generalized anxiety disorder) ANCA-positive vasculitis Family History Family History Grandparent Family history of type 2 diabetes mellitus Social History Social History Social History: Smoking status: Never smoker (chewing tobacco) Tobacco type: smokeless tobacco Smokeless tobacco user: chewing tobacco Second hand tobacco smoke exposure: No Alcohol intake: current Alcohol use details: Rarely Substance use: never Substance use type: does not use Lack of Transportation: No Lack of Food: Never True Current Housing: I Have Housing Concerned About Future Housing: No Difficulty Paying Gas/Electric Bills: No Difficulty Paying for Meds: No Currently Unemployed: No Education: Trade/Vocational Certificate Difficulty w/ Childcare or Family Care: No Living arrangements: with family Occupation/Education: occupation 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 Gender identity (if verbalized by the patient): Male Sexual Orientation (if Verbalized by the Patient): Straight or Heterosexual Exam Const: General: ill appearing Nutritional Appearance: well nourished and obese Orientation/consciousness: patient oriented x3 Limitations: no limitations HENMT: Head: normal to inspection Ears: external ears normal Face/Nose/Sinus: Normal external nose present Face and sinus: normal facial exam Mouth: Yes Normal oral and palatal mucosa present Teeth and gingiva: dentition normal Eyes: Conjunctivae: conjunctivae normal Pupils: Equal, round and reactive pupils present EOM: EOMs intact bilaterally Neck: Neck: normal visual inspection Resp: Effort & Inspection: normal respiratory effort Auscultation: clear to auscultation bilaterally Cardio: Rate: regular rate Rhythm: regular rhythm GI: GI Palp: Yes Soft to palpation, Yes Tenderness to palpation present (GI) ( left lower quadrant), Yes Guarding due to palpation present (GI) and Yes Rebound tenderness present ( left lower quadrant) Auscultation: Hypoactive bowel sounds present : General: Yes bladder normal to palpation Back/Spine/Pelvis: Back: no CVA tenderness Skin: General skin exam: normal color Rashes: no rashes Wounds: no wounds Neuro: General: patient oriented x3 Cranial nerves: Yes Nystagmus not present Speech: normal speech Extrem: General: normal to inspection and no clubbing, cyanosis or edema Psych: Mental Status: mental status grossly normal Affect: normal affect Attitude: cooperative Course Course Emergency Course: left abd pain that began at 7 pm. as long as he isnt moving he has no pain. no fever chills. Patient states he feels a sharp burning sensation constantly in the left lower quadrant that has worsened through the day. he denies vomiting but reports no appetite. he states no fever. denies any other distress. patient denies any chest pain, shortness a breath, headache or dizziness. vital signs are stable after exam noting patient has rebound tenderness off lower quadrant concern for diverticulitis. Discussed treatment options for managing and need for blood work especially with the severity of symptoms, however unable to do that in the urgent care, requested patient to be transferred to a another hospital with capabilities. He initially states he we consider these options, discussed risks versus benefits of not going to emergency department verses evaluation. He verbalized understanding he is agreeable however he would prefer to [facility] Emergency Department. called [facility] transfer line, discussed with Dr. Aguero and nurse Ornelas, exam patient. Patient instructed to present immediately to the emergency department, he verbalized understanding patient was transferred to [facility] Emergency Department via POV. Level of Care: Express Care Visit Vital Signs Vital signs: Vital Signs Temperature 97.0 F L 07/15/25 16:43 Pulse Rate 82 07/15/25 16:43 Respiratory Rate 18 07/15/25 16:43 Blood Pressure 119/80 07/15/25 16:43 Pulse Oximetry 99 07/15/25 16:43 Oxygen Delivery Room Air 07/15/25 16:43 Temperature 97.0 F L 07/15/25 16:43 Pulse Rate 82 07/15/25 16:43 Respiratory Rate 18 07/15/25 16:43 Blood Pressure 119/80 07/15/25 16:43 Pulse Oximetry 99 07/15/25 16:43 Oxygen Delivery Room Air 07/15/25 16:43 Transfer Transfered to: [facility] Transportation: Other (POV) Transfer rationale: left lower abdominal pain worsening Accepting physician: Dr Huynh [facility] MDM Narrative Medical decision making narrative: left abd pain that began at 7 pm. as long as he isnt moving he has no pain. no fever chills. Patient states he feels a sharp burning sensation constantly in the left lower quadrant that has worsened through the day. he denies vomiting but reports no appetite. he states no fever. denies any other distress. patient denies any chest pain, shortness a breath, headache or dizziness. vital signs are stable after exam noting patient has rebound tenderness off lower quadrant concern for diverticulitis. Discussed treatment options for managing and need for blood work especially with the severity of symptoms, however unable to do that in the urgent care, requested patient to be transferred to a another hospital with capabilities. He initially states he we consider these options, discussed risks versus benefits of not going to emergency department verses evaluation. He verbalized understanding he is agreeable however he would prefer to [facility] Emergency Department. called [facility] transfer line, discussed with Dr. Aguero and nurse Ornelas, exam patient. Patient instructed to present immediately to the emergency department, he verbalized understanding patient was transferred to [facility] Emergency Department via POV. Differential Diagnosis Differential Diagnosis: diverticulitis, colitis Medical Records I have reviewed the following patient records and this information was taken into consideration when formulating the assessment and plan.: previous labs, previous ER visits and previous clinic visits Discharge Plan Discharge Clinical Impression: Abdominal pain, acute, left lower quadrant Patient Disposition: Acute Care [facility] Condition: Stable Patient Language: French Prescriptions: No Action albuterol sulfate [Ventolin HFA] 90 mcg/actuation HFA aerosol inhaler 2 puff INHALATION .Q4 hours PRN (Reason: cough) Qty: 18 0RF amoxicillin-pot clavulanate 875-125 mg tablet 1 tablet PO Q12H Qty: 20 0RF codeine-guaifenesin 10-100 mg/5 mL liquid 5 ml PO Q4-6H PRN (Reason: cough) Qty: 120 0RF benzonatate 100 mg capsule 200 mg PO TID PRN (Reason: cough) Qty: 60 0RF ipratropium bromide 21 mcg (0.03 %) spray,non-aerosol 2 spray intranasal BID Qty: 30 0RF Rx Instructions: administer into each nostril irbesartan 300 mg tablet See Rx Instructions .ROUTE .COMPLEX Qty: 90 0RF Dose Instruction: TAKE 1 TABLET BY MOUTH DAILY Rx Instructions: TAKE 1 TABLET BY MOUTH DAILY Follow-up/Referrals: Lenore Wolfe MD [Primary Care Provider, Family Practice] Time of Disposition: 17:07
== END 2025-07-15 17:05 | disposition short-term general hospital (02) ==
PROVIDERS: Emergency Provider Nurse Practitioner Family; PCP Family Medicine
DX: R10.32 Left lower quadrant pain (principal); F17.220 Nicotine dependence, chewing tobacco, uncomplicated; M06.9 Rheumatoid arthritis, unspecified
CPT/HCPCS: 99212; G0463